=== PATIENT | male | born 1990 | race African-American/Black ===

== ENCOUNTER 2018-02-07 11:00 | Emergency (ER) | payer BC ==
[~2018-02-07] VITALS: Ht 172.7 cm; Wt 77.1 kg
--- NOTE | 2018-02-07 11:41 | NUR ---
Dr Cobos at the bedside for MSE.
[2018-02-07] MEDS ORDERED: KETOROLAC TROMETHAMINE 30 MG INJ IM ONE (11:45)
[2018-02-07] MEDS ORDERED: KETOROLAC TROMETHAMINE 30 MG INJ ONE (11:52)
[2018-02-07 11:56] VITALS: BP 121/71
--- NOTE | 2018-02-07 11:57 | NUR ---
Patient discharged to home in stable conditon. Written and verbal after care instructions given. Patient verbalizes understanding of instructions.
== END 2018-02-07 11:57 | disposition home or self-care (01) ==
LOC: ER 11:00
DX: S29.012A Strain of muscle and tendon of back wall of thorax, initial encounter (principal); X58.XXXA Exposure to other specified factors, initial encounter; Y93.89 Activity, other specified; Y92.89 Other specified places as the place of occurrence of the external cause; Y99.8 Other external cause status
CPT/HCPCS: A4663; J1885